=== PATIENT | male | born 1945 ===

== ENCOUNTER 2016-11-17 06:10 | Day surgery (SDC) | payer MEDICARE ==
[2016-11-06 10:15] VITALS: BMI 29.1
[2016-11-17 07:17] LABS: INR 1.1
[2016-11-17] MEDS ORDERED: Lactated Ringer's 1,000 ML IV ONE ×2 (07:38)
[2016-11-17] MEDS ORDERED: Propofol 10 mg/ml Inj (20 ML) ONE ×2 (07:40→08:26)
[2016-11-17] MEDS ORDERED: Midazolam 2 MG/2 ML VIAL ONE (07:40)
[2016-11-17] MEDS ORDERED: Vancomycin 1 gm/D5W 200 ml 200 ML IVPB ONE (08:18)
[2016-11-17] MEDS ORDERED: Gentamicin 160 MG in Sodium Chloride 0.9% 100 ML IVPB ONE (08:20)
[2016-11-17] MEDS ORDERED: Ciprofloxacin 400mg/200ml D5W 200 ML IVPB ONE (08:26)
[2016-11-17] MEDS ORDERED: HYDROmorphone 0.5 mg/0.5 ml ISec IVP PRN (08:32)
--- NOTE | 2016-11-17 08:47 | PCM.SURG1 ---
Surgeon's Initial Post Op Note - Surgeon's Notes Surgeon: Gin PIKE Manager Credit Risk: NONE Type of Anesthesia: General LMA Pre-Operative Diagnosis: URETHRAL STRICTURE Operative Findings: SAME Post-Operative Diagnosis: SAME Operation Performed: CYSTO, OPTICAL INTERNAL URETHROTOMY Specimen/Specimens Removed: URINE Estimated Blood Loss: EBL {In ML}: 0 Blood Products Given: N/A Post-Op Condition: Good Date of Surgery/Procedure: 11/17/16 Time of Surgery/Procedure: 08:35
[2016-11-17] MEDS ORDERED: HYDROmorphone 0.5 mg/0.5 ml ISec ONE (10:16)
[2016-11-17 11:03] VITALS: RESP 16
[2016-11-17 15:04] VITALS: BP 137/70; PULSE 58; TEMP 97.7; O2SAT 98
--- NOTE | 2016-11-19 07:47 | OP ---
PROCEDURE DATE: 11/17/2016 PREOPERATIVE DIAGNOSES: Poor urinary stream. Possible urethral stricture. POSTOPERATIVE DIAGNOSES: Poor urinary stream. Urethral stricture. PROCEDURES: Cystoscopy. Optical internal urethrotomy. DESCRIPTION OF PROCEDURE: The patient was placed in lithotomy position. Genitalia prepped and drape d sterilely. Perioperative antibiotics were administered. Anesthesia was provided by the anesthesiologist. A 22-Kittitian cystoscope sheath was introduced under direct vision. Urethra was inspected. There were noted to be a stricture of the bulbous urethra. The cystoscope was removed. A 20-Kittitian urethrotome sheath was introduced under direct vision. The stricture was identified. A second stricture was identified more proximally which was of a smaller caliber. A 4-Kittitian ureteral catheter was then passed through the urethrotome sheath under direct vision throu gh the stricture lumen and into the bladder. Optical internal urethrotomy was performed. An incision was performed in the 12 o'clock position. T he urethrotome sheath was advanced as the stricture was dilated. The prostatic urethra was subocclusive. The prostatic urethra was 2 cm in length. There was no bladder neck contraction. There was no bladder tumor. There was no bladder stone. The urethrotome sheath was removed. The ureteral catheter was left in place as a guide. An 18-Kittitian Councill catheter was inserted over the ureteral catheter into the bladder. Bladder clive inage was clear. Rectal examination was performed. Prostate was supple and smooth, without fixation, induration, or n odularity. The patient tolerated the procedure without complication. Cari Jaeger MD cc: [id number] TT: 11/19/2016 07:46:34 id
== END 2016-11-17 16:11 | disposition home or self-care (01) ==
LOC: C.SDS 06:10
PROVIDERS: ATTEND Urology
DX: R39.12 Poor urinary stream (principal)
CPT/HCPCS: 36415; 52275; 82948; 85610; 85730; 87086; C1758; J0744; J1170; J1580; J3370; J7120

== ENCOUNTER 2018-03-15 06:40 | Day surgery (SDC) | payer MEDICARE ==
[2018-03-02 09:38] VITALS: BMI 29.2
[2018-03-15] MEDS ORDERED: Lidocaine 2% Jelly (Uro-Jet) ONE (07:41)
[2018-03-15] MEDS ORDERED: Propofol 10 mg/ml Inj (20 ML) ONE (07:41)
[2018-03-15] MEDS ORDERED: cefTRIAXone IV 1 gm in Dextros 0 ML IVPB ONE (07:41)
[2018-03-15] MEDS ORDERED: Iohexol 240 (50 ml) ONE (07:49)
[2018-03-15] MEDS ORDERED: Ciprofloxacin 400mg/200ml D5W 400 MG/200 ML BAG IVPB ONE (07:49)
[2018-03-15 07:50] LABS: INR 1.3; PROTHROMBIN TIME 13.9 SECONDS (9.7-12.2)
[2018-03-15] MEDS ORDERED: Gentamicin 160 MG in Sodium Chloride 0.9% 100 ML IVPB ONE (08:00)
[2018-03-15] MEDS ORDERED: Iohexol 240 200 ML ONE (08:05)
[2018-03-15] MEDS ORDERED: Midazolam 2 MG/2 ML VIAL ONE (08:06)
[2018-03-15] MEDS ORDERED: Lactated Ringer's 1,000 ML IV ONE (08:49)
[2018-03-15] MEDS ORDERED: HYDROmorphone 0.5 mg/0.5 ml ISec IVP PRN (08:50)
--- NOTE | 2018-03-15 08:53 | PCM.SURG1 ---
Surgeon's Initial Post Op Note - Surgeon's Notes Surgeon: Gin Jaeger [employer] Collector: none Type of Anesthesia: General LMA Pre-Operative Diagnosis: urethral stricture Operative Findings: same Post-Operative Diagnosis: same Operation Performed: RUG, cysto, OIU Specimen/Specimens Removed: urine Estimated Blood Loss: EBL {In ML}: 0 Blood Products Given: N/A Post-Op Condition: Good Date of Surgery/Procedure: 03/15/18 Time of Surgery/Procedure: 08:40
--- NOTE | 2018-03-15 09:44 | RAD ---
Date of service: 03/15/2018 PROCEDURE: Intraoperative fluoroscopy HISTORY: URETHRAL STRICTURE COMPARISON: Not available TECHNIQUE: Intraoperative fluoroscopy was provided for retrograde urethra atrophy. FINDINGS: Total time of fluoroscopy was 8.9 seconds. Total dose was 0.78725 mGy per meter squared. IMPRESSION: Fluoroscopy provided
[2018-03-15 11:28] VITALS: BP 113/65; PULSE 65; RESP 18; TEMP 97.7; O2SAT 97
--- NOTE | 2018-03-16 20:45 | OP ---
Copied To: Cari Jaeger MD Attending MD: Cari Jaeger MD PROCEDURE DATE: 03/15/2018 PREOPERATIVE DIAGNOSES: Urethral stricture. Poor urinary stream. History of prostate carcinoma. POSTOPERATIVE DIAGNOSES: Urethral stricture. Poor urinary stream. History of prostate carcinoma. PROCEDURES: Retrograde urethrogram. Cystoscopy. Optical internal urethrotomy. OPERATING SURGEON: Cari Jaeger MD DESCRIPTION OF PROCEDURE: The patient received perioperative antibiotics. The patient was placed in an oblique position. Iodinated contrast dye was instilled via the Devine catheter placed in the distal ureter. Under fluoroscopic control, the retrograde urethrogram was performed. The anterior urethra was noted to be normal. There was noted to be a narrowing of the posterior urethra, just distal to the area of the sphincter. There was flow of contrast to the bladder as well. The bladder was not distended. The patient was placed in lithotomy position. Anesthesia had been administered by the anesthesiologist. The genitalia prepped and draped sterilely. A 20-Austrian urethrotome sheath was introduced under direct vision. The area of the stricture was identified. Procedure was performed under video endoscopic control. A 4-Austrian was inserted through the urethrotome. The catheter was inserted under direct vision through the urethral stricture into the bladder. Optical internal urethrotomy was performed. Incision of the stricture was performed in the 12 o'clock position. The stricture opened widely. The 20-Austrian sheath was able to be advanced into the bladder. The bladder was inspected. There were no other abnormal findings. There was no foreign body within the bladder. There was no stone within the bladder. The ureteral orifices were normal. There was no bladder tumor. The urethrotome sheath removed. An 18-Austrian Councill catheter was inserted over the 4-Austrian ureteral catheter into the bladder. Bladder drainage was clear. The catheter was left in place. Exam under anesthesia was performed. There was no abnormal pelvic mass fixation or induration. Prostate was supple and smooth, approximately 20 g in size. There was no other abnormal findings. The patient was returned to supine position. The patient tolerated the procedure without complication. Cari Jaeger MD [facility] # [id number]
== END 2018-03-15 11:20 | disposition home or self-care (01) ==
LOC: C.SDS 06:40
PROVIDERS: ATTEND Urology
DX: N35.9 Urethral stricture, unspecified (principal); E11.9 Type 2 diabetes mellitus without complications; I10 Essential (primary) hypertension; R39.12 Poor urinary stream; Z85.46 Personal history of malignant neoplasm of prostate
CPT/HCPCS: 36415; 52276; 82948; 85610; 85730; 87086; C1769; J0744; J1580; J7120